=== PATIENT | male | born 1940 | race Hispanic/Latino ===

== ENCOUNTER 2017-12-08 08:12 | Day surgery (SDC) | payer MEDICARE ==
[~2017-12-08] VITALS: Ht 165.1 cm; Wt 65.0 kg
[~2017-12-08 08:12] MED LIST: SODIUM CHLORIDE 0.9% 1000ML 1,000 ML IV ONE
[2017-12-08 08:59] VITALS: BP 138/92
[2017-12-08] MEDS ORDERED: AMIO200T5 PO (09:26)
[2017-12-08] MEDS ORDERED: DILT30 PO (09:26)
[2017-12-08] MEDS ORDERED: LEVO125T11 PO (09:26)
[2017-12-08] MEDS ORDERED: TAMS0.4C32 PO (09:26)
[2017-12-08] MEDS ORDERED: TRAM50TA4 PO (09:26)
[2017-12-08] MEDS ORDERED: PANT20TA12 PO (09:26)
[2017-12-08] MEDS ORDERED: METO100T14 PO (09:26)
[2017-12-08] MEDS ORDERED: RIVA20TA PO (09:26)
[2017-12-08] MEDS ORDERED: GABA-531 PO (09:26)
[2017-12-08 09:44] VITALS: BP 100/62
[2017-12-08 09:49] VITALS: BP 107/66
[2017-12-08 09:56] VITALS: BP 115/81
== END 2017-12-08 10:20 | disposition home or self-care (01) ==
LOC: DAH 08:12 → ENDO 08:12
PROVIDERS: ATTEND Internal Medicine
DX: D12.3 Benign neoplasm of transverse colon (principal); K62.1 Rectal polyp; K64.0 First degree hemorrhoids; K29.50 Unspecified chronic gastritis without bleeding; D50.9 Iron deficiency anemia, unspecified; K55.20 Angiodysplasia of colon without hemorrhage; K44.9 Diaphragmatic hernia without obstruction or gangrene; E78.5 Hyperlipidemia, unspecified; I48.91 Unspecified atrial fibrillation; D64.9 Anemia, unspecified; I11.0 Hypertensive heart disease with heart failure; I50.9 Heart failure, unspecified; Z79.899 Other long term (current) drug therapy; Z95.1 Presence of aortocoronary bypass graft; Z95.0 Presence of cardiac pacemaker; Z98.49 Cataract extraction status, unspecified eye; I25.10 Atherosclerotic heart disease of native coronary artery without angina pectoris
CPT/HCPCS: 43239; 45380; 88305; 88312; 88342; 93005; A4606; J7030